=== PATIENT | male | born 2000 | race Two or more races ===

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

== ENCOUNTER 2019-02-23 15:53 | Emergency (ER) | payer MEDICAID ==
[~2019-02-23] VITALS: Ht 180.3 cm; Wt 90.7 kg
[2019-02-23 16:07] VITALS: BP 126/69
== END 2019-02-23 16:59 | disposition home or self-care (01) ==
LOC: ER 15:53
DX: S31.21XA Laceration without foreign body of penis, initial encounter (principal); X58.XXXA Exposure to other specified factors, initial encounter; Y93.89 Activity, other specified; Y92.89 Other specified places as the place of occurrence of the external cause; Y99.8 Other external cause status

== ENCOUNTER 2019-04-09 15:19 | Emergency (ER) | payer MEDICAID, OTHER ==
[~2019-04-09] VITALS: Ht 180.3 cm; Wt 90.7 kg
[2019-04-09 15:25] VITALS: BP 132/65
[2019-04-09] MEDS ORDERED: IBUPROFEN 800 MG TAB PO ONE (16:45)
== END 2019-04-09 17:23 | disposition left against medical advice (07) ==
LOC: ER 15:19
DX: R25.2 Cramp and spasm (principal)

== ENCOUNTER 2019-09-20 08:55 | Emergency (ER) | payer MEDICAID, OTHER ==
[~2019-09-20] VITALS: Ht 177.8 cm; Wt 95.3 kg
[2019-09-20 09:33] LABS: Basophils # (auto) 0 uL; Basophils % (auto) 0.6 % (0.0-2.0); Eosinophils # (auto) 0.2 uL; Hematocrit 44.5 % (41.0-53.0); Hemoglobin 15.1 g/dL (13.5-17.5); Lymphocytes # (auto) 1.9 uL; Lymphocytes % (auto) 34.8 % (10.0-50.0); Mean Corpuscular Hemoglobin 30.6 pg (28.0-32.0); Monocytes # (auto) 0.4 uL; Neutrophils # (auto) 2.9 uL; Neutrophils % (auto) 52.6 % (37.0-80.0); Nucleated Red Blood Cells % 0.2 %; Platelet Count (auto) 205 10^3/uL (140-450); Red Blood Cells 4.94 10^6/uL (4.5-5.90); Red Cell Distribution Width 14.3 % (11.8-14.3); White Blood Cell 5.4 10^3/uL (4.4-10.8)
[2019-09-20 09:48] LABS: BUN/Creatinine Ratio 14.1; Calcium 8.9 mg/dL (8.5-10.1); Potassium 4.4 mmol/L (3.5-5.1)
[2019-09-20] MEDS ORDERED: SODIUM CHLORIDE 0.9% 1,000 ML IV ONE (09:54)
[2019-09-20 09:59] LABS: Bilirubin, Total 0.6 mg/dL (0.2-1.0); Total Protein 7.7 g/dL (6.4-8.2)
[2019-09-20] MEDS ORDERED: PROMETHAZINE HCL 25 MG/ML 1ML IV PRN (10:00)
[2019-09-20] MEDS ORDERED: DONNATAL 5ml ORAL Elix (BELLADONNA ALK-PHENOBARB) PO ONE (10:00)
[2019-09-20] MEDS ORDERED: ALUM & MAG HYDROX-SIMETH LIQ(MAALOX) 30 ML PO ONE (10:00)
[2019-09-20] MEDS ORDERED: FAMOTIDINE 20 MG TAB PO ONE (10:00)
[2019-09-20 10:02] LABS: Urine Bacteria FEW /hpf (None Seen); Urine Blood Negative /uL (Negative); Urine Mucus FEW (None Seen); Urine WBC 6 /hpf (0 - 3)
[2019-09-20 10:32] LABS: Magnesium 2.2 mg/dL (1.6-2.6)
[2019-09-20 11:21] VITALS: BP 119/80
== END 2019-09-20 11:34 | disposition home or self-care (01) ==
LOC: ER 08:58
DX: K29.70 Gastritis, unspecified, without bleeding (principal); R11.2 Nausea with vomiting, unspecified
CPT/HCPCS: 36415; 76705; 80053; 81001; 83690; 83735; 85025; 93005; 96361; 96374; 99284; J2550; J7030

== ENCOUNTER 2019-09-25 02:29 | Emergency (ER) | payer MEDICAID ==
[~2019-09-25] VITALS: Ht 180.3 cm; Wt 95.3 kg
[2019-09-25 03:13] VITALS: BP 121/63
== END 2019-09-25 05:38 | disposition left against medical advice (07) ==
LOC: ER 02:32
DX: R10.84 Generalized abdominal pain (principal); R11.10 Vomiting, unspecified; Z53.21 Procedure and treatment not carried out due to patient leaving prior to being seen by health care provider

== ENCOUNTER 2019-09-27 17:03 | Emergency (ER) | payer MEDICAID ==
[~2019-09-27] VITALS: Ht 180.3 cm; Wt 95.3 kg
[2019-09-27 19:19] VITALS: BP 142/81
== END 2019-09-27 19:56 | disposition home or self-care (01) ==
LOC: ER 17:03
DX: J06.9 Acute upper respiratory infection, unspecified (principal); J02.9 Acute pharyngitis, unspecified
CPT/HCPCS: 93005